=== PATIENT | female | born 1995 | race Caucasian/White ===

== ENCOUNTER 2019-07-27 15:30 | Outpatient (RCR) | payer BC ==
[2019-05-17 20:51] VITALS: BP 119/73
[~2019-07-27 15:30] MED LIST: NORCO 325 MG-51 TAB PO
== END 2019-07-27 16:00 | disposition still patient (30) ==
LOC: OT 15:30
DX: S52.002A Unspecified fracture of upper end of left ulna, initial encounter for closed fracture (principal); S53.005A Unspecified dislocation of left radial head, initial encounter

== ENCOUNTER → 2020-03-03 | Outpatient (CLI) | payer BC ==
[2019-05-17 20:51] VITALS: BP 119/73
[2020-03-03 16:19] LABS: CLUE CELLS NOT OBSERVED (Not Observd)
== END ==
LOC: LAB 15:49
PROVIDERS: Nurse Practitioner
DX: N76.0 Acute vaginitis (principal)
CPT/HCPCS: Q0111

== ENCOUNTER → 2020-05-11 | Outpatient (CLI) | payer BC ==
[2019-05-17 20:51] VITALS: BP 119/73
== END ==
LOC: RAD 08:21
DX: R10.9 Unspecified abdominal pain (principal)

== ENCOUNTER → 2020-05-15 | Outpatient (CLI) | payer BC ==
[2019-05-17 20:51] VITALS: BP 119/73
== END ==
LOC: RAD 09:51
DX: K44.9 Diaphragmatic hernia without obstruction or gangrene (principal)
CPT/HCPCS: Q9967

== ENCOUNTER → 2021-05-25 | Outpatient (CLI) | payer BC | LOC: LAB 08:40 | DX: Z20.822 Contact with and (suspected) exposure to COVID-19 (principal) ==